=== PATIENT | male | born 1965 | race Two or more races ===

== ENCOUNTER → 2023-12-19 | Emergency (ER) | payer MEDICAID ==
[~2023-12-19] VITALS: Ht 167.6 cm; Wt 64.0 kg
[2023-12-19 21:23] VITALS: BP 124/86; PULSE 110; RESP 18; TEMP 98.6; O2SAT 98
== END ==
LOC: ER 20:59
DX: M25.562 Pain in left knee (principal); M25.561 Pain in right knee; Z98.890 Other specified postprocedural states
CPT/HCPCS: 99283

== ENCOUNTER 2024-06-25 15:35 | Emergency (ER) | payer MEDICAID ==
[~2024-06-25] VITALS: Ht 165.1 cm; Wt 80.0 kg
[2024-06-25 15:35] VITALS: BP 121/79; PULSE 98; RESP 18; TEMP 98.6; O2SAT 99
== END 2024-06-25 20:36 | disposition left against medical advice (07) ==
LOC: ER 15:35
DX: M79.604 Pain in right leg (principal); Z89.511 Acquired absence of right leg below knee
CPT/HCPCS: 99281

== ENCOUNTER 2024-06-26 01:29 | Emergency (ER) | payer MEDICAID ==
[~2024-06-26] VITALS: Ht 177.8 cm; Wt 75.0 kg
[2024-06-26 02:01] VITALS: BP 149/74; PULSE 88; RESP 18; TEMP 97.7; O2SAT 99
== END 2024-06-26 05:57 | disposition home or self-care (01) ==
LOC: ER 01:29
DX: M79.606 Pain in leg, unspecified (principal); Z59.00 Homelessness unspecified
CPT/HCPCS: 99281

== ENCOUNTER 2024-06-26 20:05 | Emergency (ER) | payer MEDICAID ==
[~2024-06-26] VITALS: Ht 167.6 cm; Wt 88.0 kg
[2024-06-26 20:33] VITALS: BP 135/93; PULSE 98; RESP 18; TEMP 98.2; O2SAT 98
== END 2024-06-27 00:07 | disposition home or self-care (01) ==
LOC: ER 20:05
DX: Z00.00 Encounter for general adult medical examination without abnormal findings (principal); Z59.00 Homelessness unspecified
CPT/HCPCS: 99281